=== PATIENT | male | born 1990 | race African-American/Black ===

== ENCOUNTER 2016-12-26 23:24 | Inpatient (IN) | payer SELFPAY ==
[~2016-12-26] VITALS: Ht 167.6 cm; Wt 66.8 kg
[2016-12-27] VITALS (12 sets, daily range): BP systolic 113–131; BP diastolic 61–81
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
[2016-12-27] MEDS: IV NORMAL SALINE 1000ML BAG 1,000 ML IV SCH ×2 (01:34→11:28)
[2016-12-27] MEDS ORDERED: ONDANSETRON PF 4 MG/2 ML VIAL. IV PRN (01:45)
[2016-12-27] MEDS: fentaNYL PF VIAL 100 MCG/2 ML VIAL IV PRN ×5 (01:49→23:31)
[2016-12-27 01:57] LABS: BASO % 1 % (0-3); EOS % 2 % (0-3); HEMATOCRIT 38.7 % (39.0-53.0); HEMOGLOBIN 12.8 g/dL (13.0-17.5); LYMPH # 1.7 x10^3/uL (1.0-4.8); LYMPH % 36 % (24-48); MEAN CORPUSCULAR HEMOGLOBIN 31 pg (25-35); MEAN CORPUSCULAR HGB CONC 33 g/dL (31-37); MEAN CORPUSCULAR VOLUME 93 fL (79-100); MONO % 7 % (0-9); NEUT % 55 % (31-73); PLATELET COUNT 204 x10^3/uL (140-400); RED BLOOD COUNT 4.15 x10^6/uL (4.30-5.70); RED CELL DISTRIBUTION WIDTH 13.7 % (11.5-14.5); WHITE BLOOD COUNT 4.8 x10^3/uL (4.0-11.0)
[2016-12-27 02:05] LABS: INR 1.1 (0.8-1.1); PROTHROMBIN TIME PATIENT 13.5 SEC (11.7-14.0)
[2016-12-27 02:06] LABS: CALCIUM 8.8 mg/dL (8.5-10.1); GFR 111.1; POTASSIUM 3.6 mmol/L (3.5-5.1)
--- NOTE | 2016-12-27 09:30 | RAD ---
CT of the head without contrast, 12/27/2016: History: Follow-up possible subdural hematoma Noncontrast scans were obtained and compared to a study from earlier the same day. The ventricles are within normal limits in size. There is no shift of the midline structures. There is no evidence of acute intracranial hemorrhage or mass effect. Today's coronal reconstructions show no evidence of significant hemorrhage along the tentorium. IMPRESSION: No acute intracranial abnormality is detected. PQRS Compliance Statement: One or more of the following individualized dose reduction techniques were utilized for this examination: 1. Automated exposure control 2. Adjustment of the mA and/or kV according to patient size 3. Use of iterative reconstruction technique
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
[2016-12-27] MEDS: oxyCODONE/APAP 5/325 1 TAB TABLET PO PRN ×2 (15:00→20:32)
[2016-12-28 05:30] LABS: HEMATOCRIT 36.4 % (39.0-53.0); HEMOGLOBIN 12.2 g/dL (13.0-17.5); MEAN CORPUSCULAR HEMOGLOBIN 31 pg (25-35); MEAN CORPUSCULAR HGB CONC 34 g/dL (31-37); MEAN CORPUSCULAR VOLUME 92 fL (79-100); PLATELET COUNT 196 x10^3/uL (140-400); RED BLOOD COUNT 3.97 x10^6/uL (4.30-5.70); RED CELL DISTRIBUTION WIDTH 13.7 % (11.5-14.5); WHITE BLOOD COUNT 4.2 x10^3/uL (4.0-11.0)
[2016-12-28 05:31] LABS: BASO % 1 % (0-3); EOS % 5 % (0-3); LYMPH # 2.3 x10^3/uL (1.0-4.8); LYMPH % 55 % (24-48); MONO % 11 % (0-9); NEUT % 28 % (31-73)
[2016-12-28 06:21] LABS: CALCIUM 8.5 mg/dL (8.5-10.1); CREATININE 1.2 mg/dL (0.7-1.3)
[2016-12-28 07:00] VITALS: BP 134/79
[2016-12-28] MEDS: oxyCODONE/APAP 5/325 1 TAB TABLET PO PRN ×2 (09:17→14:44)
[2016-12-28 11:00] VITALS: BP 115/74
--- NOTE | 2016-12-28 11:57 | PDOC ---
PROGRESS NOTES Chief Complaint Chief Complaint questionable small right tentorial subdural hemorrhage and facial bone, nasal fracture. Plan asymptomatic feeling better no acute events wants to go home Vitals Vitals Vital Signs Date Time Temp Pulse Resp B/P Pulse Ox O2 Delivery O2 Flow Rate FiO2 12/28/16 11:00 98.2 67 18 115/74 98 Room Air 98.2 Physical Exam General: Alert, Oriented X3 Heart: Normal S1, Normal S2 Lungs: Clear Abdomen: Normal bowel sounds Labs LABS Laboratory Tests Test 12/28/16 05:00 White Blood Count 4.2x10^3/uL (4.0-11.0) Red Blood Count 3.97x10^6/uL (4.30-5.70) Hemoglobin 12.2g/dL (13.0-17.5) Hematocrit 36.4% (39.0-53.0) Mean Corpuscular Volume 92fL (79-100) Mean Corpuscular Hemoglobin 31pg (25-35) Mean Corpuscular Hemoglobin Concent 34g/dL (31-37) Red Cell Distribution Width 13.7% (11.5-14.5) Platelet Count 196x10^3/uL (140-400) Neutrophils (%) (Auto) 28% (31-73) Lymphocytes (%) (Auto) 55% (24-48) Monocytes (%) (Auto) 11% (0-9) Eosinophils (%) (Auto) 5% (0-3) Basophils (%) (Auto) 1% (0-3) Neutrophils # (Auto) 1.2x10^3uL (1.8-7.7) Lymphocytes # (Auto) 2.3x10^3/uL (1.0-4.8) Monocytes # (Auto) 0.5x10^3/uL (0.0-1.1) Eosinophils # (Auto) 0.2x10^3/uL (0.0-0.7) Basophils # (Auto) 0.0x10^3/uL (0.0-0.2) Sodium Level 141mmol/L (136-145) Potassium Level 4.0mmol/L (3.5-5.1) Chloride Level 106mmol/L (98-107) Carbon Dioxide Level 30mmol/L (21-32) Anion Gap 5 (6-14) Blood Urea Nitrogen 8mg/dL (8-26) Creatinine 1.2mg/dL (0.7-1.3) Estimated GFR (Cockcroft-Gault) 90.0 Glucose Level 80mg/dL (70-99) Calcium Level 8.5mg/dL (8.5-10.1) Assessment and Plan Assessmemt and Plan Problems Medical Problems: (1) Closed head injury with concussion Status: Acute (2) Nasal bones, closed fracture Status: Acute (3) Subdural hematoma Status: Acute Problems: Comment Review of Relevant I have reviewed the following items ely (where applicable) has been applied. Labs Laboratory Tests Test 12/27/16 01:38 12/27/16 06:10 12/28/16 05:00 White Blood Count 4.8x10^3/uL (4.0-11.0) 4.2x10^3/uL (4.0-11.0) Red Blood Count 4.15x10^6/uL (4.30-5.70) 3.97x10^6/uL (4.30-5.70) Hemoglobin 12.8g/dL (13.0-17.5) 12.2g/dL (13.0-17.5) Hematocrit 38.7% (39.0-53.0) 36.4% (39.0-53.0) Mean Corpuscular Volume 93fL (79-100) 92fL (79-100) Mean Corpuscular Hemoglobin 31pg (25-35) 31pg (25-35) Mean Corpuscular Hemoglobin Concent 33g/dL (31-37) 34g/dL (31-37) Red Cell Distribution Width 13.7% (11.5-14.5) 13.7% (11.5-14.5) Platelet Count 204x10^3/uL (140-400) 196x10^3/uL (140-400) Neutrophils (%) (Auto) 55% (31-73) 28% (31-73) Lymphocytes (%) (Auto) 36% (24-48) 55% (24-48) Monocytes (%) (Auto) 7% (0-9) 11% (0-9) Eosinophils (%) (Auto) 2% (0-3) 5% (0-3) Basophils (%) (Auto) 1% (0-3) 1% (0-3) Neutrophils # (Auto) 2.6x10^3uL (1.8-7.7) 1.2x10^3uL (1.8-7.7) Lymphocytes # (Auto) 1.7x10^3/uL (1.0-4.8) 2.3x10^3/uL (1.0-4.8) Monocytes # (Auto) 0.3x10^3/uL (0.0-1.1) 0.5x10^3/uL (0.0-1.1) Eosinophils # (Auto) 0.1x10^3/uL (0.0-0.7) 0.2x10^3/uL (0.0-0.7) Basophils # (Auto) 0.0x10^3/uL (0.0-0.2) 0.0x10^3/uL (0.0-0.2) Prothrombin Time 13.5SEC (11.7-14.0) Prothromb Time International Ratio 1.1 (0.8-1.1) Activated Partial Thromboplast Time 33SEC (24-38) Sodium Level 140mmol/L (136-145) 141mmol/L (136-145) Potassium Level 3.6mmol/L (3.5-5.1) 4.0mmol/L (3.5-5.1) Chloride Level 106mmol/L (98-107) 106mmol/L (98-107) Carbon Dioxide Level 27mmol/L (21-32) 30mmol/L (21-32) Anion Gap 7 (6-14) 5 (6-14) Blood Urea Nitrogen 7mg/dL (8-26) 8mg/dL (8-26) Creatinine 1.0mg/dL (0.7-1.3) 1.2mg/dL (0.7-1.3) Estimated GFR (Cockcroft-Gault) 111.1 90.0 Glucose Level 93mg/dL (70-99) 80mg/dL (70-99) Calcium Level 8.8mg/dL (8.5-10.1) 8.5mg/dL (8.5-10.1) Nasal Screen MRSA (PCR) Negative (Negative) Laboratory Tests Test 12/28/16 05:00 White Blood Count 4.2x10^3/uL (4.0-11.0) Red Blood Count 3.97x10^6/uL (4.30-5.70) Hemoglobin 12.2g/dL (13.0-17.5) Hematocrit 36.4% (39.0-53.0) Mean Corpuscular Volume 92fL (79-100) Mean Corpuscular Hemoglobin 31pg (25-35) Mean Corpuscular Hemoglobin Concent 34g/dL (31-37) Red Cell Distribution Width 13.7% (11.5-14.5) Platelet Count 196x10^3/uL (140-400) Neutrophils (%) (Auto) 28% (31-73) Lymphocytes (%) (Auto) 55% (24-48) Monocytes (%) (Auto) 11% (0-9) Eosinophils (%) (Auto) 5% (0-3) Basophils (%) (Auto) 1% (0-3) Neutrophils # (Auto) 1.2x10^3uL (1.8-7.7) Lymphocytes # (Auto) 2.3x10^3/uL (1.0-4.8) Monocytes # (Auto) 0.5x10^3/uL (0.0-1.1) Eosinophils # (Auto) 0.2x10^3/uL (0.0-0.7) Basophils # (Auto) 0.0x10^3/uL (0.0-0.2) Sodium Level 141mmol/L (136-145) Potassium Level 4.0mmol/L (3.5-5.1) Chloride Level 106mmol/L (98-107) Carbon Dioxide Level 30mmol/L (21-32) Anion Gap 5 (6-14) Blood Urea Nitrogen 8mg/dL (8-26) Creatinine 1.2mg/dL (0.7-1.3) Estimated GFR (Cockcroft-Gault) 90.0 Glucose Level 80mg/dL (70-99) Calcium Level 8.5mg/dL (8.5-10.1) Medications Current Medications Ondansetron HCl (Zofran) 4 mg PRN Q8HRS PRN IV NAUSEA/VOMITING; Start 12/27/16 at 01:45; Stop 12/28/16 at 01:44; Status DC Fentanyl Citrate 50 mcg 50 mcg PRN Q2HR PRN IV SEVERE PAIN Last administered on 12/27/16 23:31; Start 12/27/16 at 01:45; Stop 12/28/16 at 01:44; Status DC Sodium Chloride (Iv Sodium Chloride 0.9% 1000ml Bag) 1,000 ml @ 100 mls/hr Q10H IV Last administered on 12/27/16 11:28; Start 12/27/16 at 01:34; Stop at 13:20; Status DC Oxycodone/ Acetaminophen (Percocet 5/325) 1 tab PRN Q4HRS PRN PO SEVERE PAIN Last administered on 12/28/16 09:17; Start 12/27/16 at 06:45 Vitals/I & O Vital Sign - Last 24 Hours 12/27/16 12/27/16 12/27/16 12/27/16 12:00 13:18 14:38 15:00 Temp 98.4 98.0 98.4 98.0 Pulse 52 52 Resp 14 13 16 B/P 114/61 113/69 Pulse Ox 96 98 100 O2 Delivery Room Air Room Air Room Air 12/27/16 12/27/16 12/27/16 12/27/16 17:55 19:38 20:00 20:32 Temp 98.2 98.2 Pulse 62 Resp 18 B/P 121/76 Pulse Ox 98 O2 Delivery Room Air Room Air Room Air Room Air 12/27/16 12/27/16 12/28/16 12/28/16 23:31 23:47 00:23 07:00 Temp 98.3 98.2 98.3 98.2 Pulse 60 72 Resp 18 16 B/P 123/81 134/79 Pulse Ox 98 97 O2 Delivery Room Air Room Air Room Air Room Air 12/28/16 12/28/16 12/28/16 12/28/16 08:00 09:17 10:17 11:00 Temp 98.2 98.2 Pulse 67 Resp 16 16 18 B/P 115/74 Pulse Ox 97 97 98 O2 Delivery Room Air Room Air Room Air Room Air Intake and Output 12/27/16 12/27/1612/28/17 15:00 23:00 07:00 Intake Total 100 ml 640 ml 0 ml Balance 100 ml 640 ml 0 ml ACSSIE RAMOS MD Dec 28, 2016 11:57
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
== END 2016-12-28 16:12 | disposition home or self-care (01) | DRG 155 ==
LOC: ER 23:24 → ED HOLD 12-27 01:07 → 1 WEST ICU 12-27 06:00 → 6 SOUTH 12-27 14:10
PROVIDERS: ADMIT Internal Medicine; ATTEND Internal Medicine
DX: S02.2XXA Fracture of nasal bones, initial encounter for closed fracture (principal); S02.92XA Unspecified fracture of facial bones, initial encounter for closed fracture; Y04.0XXA Assault by unarmed brawl or fight, initial encounter; Y93.89 Activity, other specified; Y92.89 Other specified places as the place of occurrence of the external cause; Y99.8 Other external cause status; Z82.49 Family history of ischemic heart disease and other diseases of the circulatory system
CPT/HCPCS: 36415; 70450; 70486; 80048; 85027; 85610; 85730; 87641; 96361; 96374; 96375; 96376; J3010; J7030; 99285-25

== ENCOUNTER 2017-02-26 13:45 | Emergency (ER) | payer SELFPAY ==
[~2017-02-26] VITALS: Ht 167.6 cm; Wt 66.7 kg
[2017-02-26 13:49] VITALS: BP 129/62
[2017-02-26] MEDS ORDERED: AMOX1TAB61 PO (14:19)
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
[2017-02-26] MEDS ORDERED: DIPHTH,PERTUSS(ACELL),TET TOX 0.5 ML DISP.SYRIN. VAX IM ONE (14:30)
[2017-02-26] MEDS ORDERED: AZITHROMYCIN 250 MG TABLET. PO ONE (14:30)
[2017-02-26] MEDS ORDERED: metroNIDAZOLE 500 MG TABLET PO ONE (14:30)
[2017-02-26] MEDS ORDERED: cefTRIAXone IM 250 MG VIAL IM ONE (14:30)
== END 2017-02-26 14:30 | disposition home or self-care (01) ==
LOC: ER 13:45
DX: S01.451A Open bite of right cheek and temporomandibular area, initial encounter (principal); Z20.2 Contact with and (suspected) exposure to infections with a predominantly sexual mode of transmission; J45.909 Unspecified asthma, uncomplicated; Y04.1XXA Assault by human bite, initial encounter; Y93.89 Activity, other specified; Y99.8 Other external cause status; Y92.89 Other specified places as the place of occurrence of the external cause
CPT/HCPCS: 90471; 90715; 96372; 99284; J0696; Q0144

== ENCOUNTER 2017-08-26 15:12 | Emergency (ER) | payer SELFPAY ==
[2017-08-26] MEDS: IBUPROFEN 800 MG TABLET. PO (16:04)
== END 2017-08-26 16:07 | disposition home or self-care (01) ==
LOC: ER 15:12
DX: S63.91XA Sprain of unspecified part of right wrist and hand, initial encounter (principal); J45.909 Unspecified asthma, uncomplicated; Z98.42 Cataract extraction status, left eye; W22.8XXA Striking against or struck by other objects, initial encounter; Y93.89 Activity, other specified; Y92.89 Other specified places as the place of occurrence of the external cause; Y99.8 Other external cause status
CPT/HCPCS: 73110; 73130; 99284

== ENCOUNTER 2017-11-05 01:15 | Emergency (ER) | payer SELFPAY | END 2017-11-05 01:48 | disposition home or self-care (01) | LOC: ER 01:15 | DX: K08.89 Other specified disorders of teeth and supporting structures (principal); R09.81 Nasal congestion; F17.210 Nicotine dependence, cigarettes, uncomplicated | CPT/HCPCS: 99283 ==

== ENCOUNTER 2018-10-10 18:13 | Emergency (ER) | payer SELFPAY ==
[~2018-10-10] VITALS: Ht 168.9 cm; Wt 65.8 kg
[~2018-10-10 18:13] MED LIST: AMOX1TAB61 PO; AMOX500C PO; IBUP-1060 PO; NAPR-683 PO
[2018-10-10] MEDS ORDERED: KETOROLAC 15 MG/ML VIAL. IV ONE (18:45)
--- NOTE | 2018-10-10 18:51 | PHYS DOC ---
Past Medical History Past Medical History: Bronchitis Additional Past Medical Histor: INFLAMMATION IN GI TRACT, Past Surgical History: Other Additional Past Surgical Histo: EYE SURGERY X2; fall with head injury 11/2016 and nasal fracture Alcohol Use: None Drug Use: None Adult General Chief Complaint Chief Complaint: SHORTNESS OF BREATH [facility] HPI Patient is a 27 year old male who presents with right-sided chest pain that began approximately an hour prior to arrival. Patient was standing and cooking supper when this happened. No coughing. Patient reports that he has a history of chronic bronchitis and continues to smoke a pack of black and mild daily. He reports that the discomfort is respirophasic. Denies any PE risk factors. Denies any leg swelling, trauma, stasis, nor known hypercoagulable state. Patient is taken no medicine for the discomfort. Shallow breaths seem to make it a little bit better. Pain is sharp, moderate to severe in intensity. There has been no fever.[] Review of Systems Review of Systems Constitutional: Denies fever or chills [] Eyes: Denies change in visual acuity, redness, or eye pain [] HENT: Denies nasal congestion or sore throat [] Respiratory: Denies cough or shortness of breath [] Cardiovascular: No additional information not addressed in HPI [] GI: Denies abdominal pain, nausea, vomiting, bloody stools or diarrhea [] : Denies dysuria or hematuria [] Musculoskeletal: Denies back pain or joint pain [] Integument: Denies rash or skin lesions [] Neurologic: Denies headache, focal weakness or sensory changes [] Endocrine: Denies polyuria or polydipsia [] All other systems were reviewed and found to be within normal limits, except as documented in this note. Current Medications Current Medications Current Medications Medications (Trade) Dose Ordered Sig/[facility] Start Time Stop Time Status Last Admin Dose Admin Ketorolac Tromethamine (Toradol 15mg Vial) 15 mg 1X ONCE 10/10/18 18:45 10/10/18 18:50 DC 10/10/18 19:09 15 MG Allergies Allergies Allergies Coded Allergies Type Severity Reaction Last Updated Verified No Known Drug Allergies 12/26/16 No Physical Exam Physical Exam Constitutional: Well developed, well nourished, no acute distress, non-toxic appearance. [] HENT: Normocephalic, atraumatic, bilateral external ears normal, oropharynx moist, no oral exudates, nose normal. [] Eyes: PERRLA, EOMI, conjunctiva normal, no discharge. [] Neck: Normal range of motion, no tenderness, supple, no stridor. [] Cardiovascular:Heart rate regular rhythm, no murmur [] Lungs & Thorax: Bilateral breath sounds clear to auscultation. There is tenderness in the right chest upper sternal border that re-creates the pain when palpated [] Abdomen: Bowel sounds normal, soft, no tenderness, no masses, no pulsatile masses. [] Skin: Warm, dry, no erythema, no rash. [] Back: No tenderness, no CVA tenderness. [] Extremities: No tenderness, no cyanosis, no clubbing, ROM intact, no edema. [] Neurologic: Alert and oriented X 3, normal motor function, normal sensory function, no focal deficits noted. [] Psychologic: Affect normal, judgement normal, mood normal. [] Current Patient Data Vital Signs Vital Signs Date Time Temp Pulse Resp B/P (MAP) Pulse Ox O2 Delivery O2 Flow Rate FiO2 10/10/18 18:35 98.2 69 18 116/72 (87) 99 Room Air 98.2 Lab Values Laboratory Tests Test 10/10/18 18:52 White Blood Count 4.0 x10^3/uL (4.0-11.0) Red Blood Count 4.49 x10^6/uL (4.30-5.70) Hemoglobin 13.8 g/dL (13.0-17.5) Hematocrit 41.8 % (39.0-53.0) Mean Corpuscular Volume 93 fL (79-100) Mean Corpuscular Hemoglobin 31 pg (25-35) Mean Corpuscular Hemoglobin Concent 33 g/dL (31-37) Red Cell Distribution Width 13.8 % (11.5-14.5) Platelet Count 253 x10^3/uL (140-400) Neutrophils (%) (Auto) 37 % (31-73) Lymphocytes (%) (Auto) 44 % (24-48) Monocytes (%) (Auto) 11 % (0-9) H Eosinophils (%) (Auto) 8 % (0-3) H Basophils (%) (Auto) 1 % (0-3) Neutrophils # (Auto) 1.4 x10^3uL (1.8-7.7) L Lymphocytes # (Auto) 1.7 x10^3/uL (1.0-4.8) Monocytes # (Auto) 0.4 x10^3/uL (0.0-1.1) Eosinophils # (Auto) 0.3 x10^3/uL (0.0-0.7) Basophils # (Auto) 0.0 x10^3/uL (0.0-0.2) Prothrombin Time 13.1 SEC (11.7-14.0) Prothrombin Time INR 1.0 (0.8-1.1) D-Dimer (Carla) < 0.27 ug/mlFEU Sodium Level 140 mmol/L (136-145) Potassium Level 4.5 mmol/L (3.5-5.1) Chloride Level 103 mmol/L (98-107) Carbon Dioxide Level 28 mmol/L (21-32) Anion Gap 9 (6-14) Blood Urea Nitrogen 14 mg/dL (8-26) Creatinine 1.1 mg/dL (0.7-1.3) Estimated GFR (Cockcroft-Gault) 98.7 BUN/Creatinine Ratio 13 (6-20) Glucose Level 77 mg/dL (70-99) Calcium Level 9.7 mg/dL (8.5-10.1) Magnesium Level 1.8 mg/dL (1.8-2.4) Total Bilirubin 0.4 mg/dL (0.2-1.0) Aspartate Amino Transferase (AST) 16 U/L (15-37) Alanine Aminotransferase (ALT) 17 U/L (16-63) Alkaline Phosphatase 55 U/L (46-116) Troponin I Quantitative < 0.017 ng/mL (0.000-0.055) AR-Ktu-X-Type Natriuretic Peptide 5 pg/mL (0-124) Total Protein 7.7 g/dL (6.4-8.2) Albumin 4.1 g/dL (3.4-5.0) Albumin/Globulin Ratio 1.1 (1.0-1.7) Lipase 76 U/L (73-393) Laboratory Tests 10/10/18 18:52 Laboratory Tests 10/10/18 18:52 EKG EKG EKG shows sinus rhythm at 71 bpm, normal axis, normal QTC, no ST elevation, interpreted by me at 1839[] Radiology/Procedures Radiology/Procedures Chest x-ray shows no infiltrate, no effusion, no pneumothorax[] Course & Med Decision Making Course & Med Decision Making Pertinent Labs and Imaging studies reviewed. (See chart for details) Medical decision making: There is no evidence of pneumonia, pneumothorax, pulmonary embolism, acute coronary syndrome, nor esophageal rupture. ED course: Patient arrived, was placed in bed, tolerated exam well. He did achieve some pain relief with the medication given. He was released in improved condition after discussion with him about the lab and imaging findings.[] Dragon Disclaimer Dragon Disclaimer This electronic medical record was generated, in whole or in part, using a voice recognition dictation system. Departure Departure Impression: Primary Impression: Chest pain Disposition: HOME, SELF-CARE Condition: IMPROVED Referrals: NO PCP (PCP) Patient Instructions: Chest Pain (Nonspecific) Additional Instructions: Follow-up with your regular doctor in 2 days. Return to the ER if worsening pain or difficulty breathing, or any other concerns Scripts Tramadol Hcl (TRAMADOL HCL) 50 Mg Tablet 50 MG PO Q6HRS PRN for PAIN, #20 TAB Prov: JULIO TINAJERO DO 10/10/18 Meloxicam (MELOXICAM) 7.5 Mg Tablet 7.5 MG PO DAILY, #20 TAB Prov: JULIO TINAJERO DO 10/10/18 Albuterol Sulfate (VENTOLIN HFA INHALER) 18 Gm Hfa.aer.ad 2 PUFF INH Q4HRS for FOR ASTHMA, #1 INHALER 0 Refills Prov: JUILO TINAJERO DO 10/10/18 Problem Qualifiers Primary Impression: Chest pain Chest pain type: unspecified Qualified Codes: R07.9 - Chest pain, unspecified JULIO TINAJERO DO Oct 10, 2018 18:51
[2018-10-10 19:16] LABS: BASO % 1 % (0-3); EOS # 0.3 x10^3/uL (0.0-0.7); EOS % 8 % (0-3); HEMATOCRIT 41.8 % (39.0-53.0); HEMOGLOBIN 13.8 g/dL (13.0-17.5); LYMPH # 1.7 x10^3/uL (1.0-4.8); LYMPH % 44 % (24-48); MEAN CORPUSCULAR HEMOGLOBIN 31 pg (25-35); MEAN CORPUSCULAR HGB CONC 33 g/dL (31-37); MEAN CORPUSCULAR VOLUME 93 fL (79-100); MONO # 0.4 x10^3/uL (0.0-1.1); MONO % 11 % (0-9); NEUT # 1.4 x10^3uL (1.8-7.7); NEUT % 37 % (31-73); PLATELET COUNT 253 x10^3/uL (140-400); RED BLOOD COUNT 4.49 x10^6/uL (4.30-5.70); RED CELL DISTRIBUTION WIDTH 13.8 % (11.5-14.5)
[2018-10-10 19:27] LABS: PROTHROMBIN TIME PATIENT 13.1 SEC (11.7-14.0)
[2018-10-10 19:30] LABS: CALCIUM 9.7 mg/dL (8.5-10.1); CREATININE 1.1 mg/dL (0.7-1.3); GFR 98.7; POTASSIUM 4.5 mmol/L (3.5-5.1)
[2018-10-10 19:34] LABS: D-DIMER < 0.27 ug/mlFEU (0.00-0.50)
[2018-10-10 19:35] LABS: ALBUMIN 4.1 g/dL (3.4-5.0); ALBUMIN/GLOBULIN RATIO 1.1 (1.0-1.7); MAGNESIUM 1.8 mg/dL (1.8-2.4); TOTAL BILIRUBIN 0.4 mg/dL (0.2-1.0); TOTAL PROTEIN 7.7 g/dL (6.4-8.2)
[2018-10-10 20:01] VITALS: BP 150/83
[2018-10-10] MEDS ORDERED: MELO7.5T29 PO (20:16)
[2018-10-10] MEDS ORDERED: VENTOLIN HFA18 GM INH (20:16)
[2018-10-10] MEDS ORDERED: TRAM50TA PO (20:16)
--- NOTE | 2018-10-12 14:47 | RAD ---
Chest, PA and Lateral: Technique: PA and lateral views of the chest were obtained. History: Right-sided chest pain. Comparison: None. Findings: The heart and pulmonary vasculature appear within normal limits. The lungs are clear. The pleural margins are clear. Impression: No acute chest process is seen. Electronically signed by: Jovanni Rice MD (10/12/2018 2:42 PM) [place] [id number]
--- NOTE | 2018-10-13 10:41 | EKG ---
[facility] [address] [place] [address] Test Date: 2018-10-10 Test Time: 18:37:29 Pat Name: EMILY MARTINES Department: Room: Gender: M [employer]: : 1990 Requested By: JULIO TINAJERO Order Number: [id number] Reading MD: Measurements Intervals [place] Rate: 71 P: 62 NH: 178 QRS: 49 QRSD: 82 T: 43 QT: 350 QTc: 380 Interpretive Statements SINUS RHYTHM QRS(T) CONTOUR ABNORMALITY CONSIDER ANTEROSEPTAL MYOCARDIAL DAMAGE POSSIBLY ABNORMAL ECG RI6.01 Unconfirmed report No previous ECG available for comparison
== END 2018-10-10 20:46 | disposition home or self-care (01) ==
LOC: ER 18:13
DX: R07.89 Other chest pain (principal)
CPT/HCPCS: 36415; 71046; 80053; 83690; 83735; 83880; 84484; 85025; 85379; 85610; 93005; 96374; 99284; J1885